=== PATIENT | male | born 1965 | race Caucasian/White ===

== ENCOUNTER → 2022-08-11 | Day surgery (SDC) | payer BC ==
[~2022-08-11] MED LIST: Lactated Ringers 1,000 ML IV ONE; Lactated Ringers 1,000 ML IV SCH; Propofol 200 MG/20 ML SDV ONE; Sodium Chloride 0.9% 10 ML Syringe FLUSH PRN
== END ==
LOC: LL.SDS 06:00
PROVIDERS: ATTEND Surgery
DX: R19.5 Other fecal abnormalities (principal); F33.1 Major depressive disorder, recurrent, moderate; E78.5 Hyperlipidemia, unspecified; K76.0 Fatty (change of) liver, not elsewhere classified; R73.03 Prediabetes; F41.9 Anxiety disorder, unspecified; M25.511 Pain in right shoulder; G89.29 Other chronic pain; M25.512 Pain in left shoulder; G47.30 Sleep apnea, unspecified; J45.909 Unspecified asthma, uncomplicated; Z79.899 Other long term (current) drug therapy; Z88.8 Allergy status to other drugs, medicaments and biological substances
CPT/HCPCS: 00812; J2704; J7120